=== PATIENT | male | born 1955 | race African-American/Black ===

== ENCOUNTER 2024-04-25 15:32 | Emergency (ER) | payer MEDICARE, MEDICAID ==
[~2024-04-25] VITALS: Ht 188 cm; Wt 109.0 kg
[2024-04-25 15:36] VITALS: BP 132/89; PULSE 117; RESP 18; TEMP 99.7; O2SAT 97
== END 2024-04-25 16:02 | disposition home or self-care (01) ==
LOC: ER 15:32
DX: R56.9 Unspecified convulsions (principal); E78.5 Hyperlipidemia, unspecified; I10 Essential (primary) hypertension; Z98.890 Other specified postprocedural states; Z86.73 Personal history of transient ischemic attack (TIA), and cerebral infarction without residual deficits
CPT/HCPCS: 99283